=== PATIENT | female | born 1965 | race Caucasian/White ===

== ENCOUNTER 2023-10-10 11:23 | Inpatient (IN) | payer SELFPAY ==
[~2023-10-10] VITALS: Ht 170.2 cm; Wt 68.1 kg
[2023-10-10] MEDS ORDERED: SODIUM CHLORIDE 0.9% 1,000 ML IV ONE ×2 (11:45→14:00)
[2023-10-10] MEDS ORDERED: methylPREDNISolone SOD SUCC 125 MG/2 ML VL IV ONE (12:45)
[2023-10-10 12:47] LABS: Alanine Aminotransferase 160 U/L (7-40); Albumin 3.3 g/dL (3.2-4.8); Alkaline Phosphatase 168 U/L (46-116); Anion Gap 13 (5-15); Aspartate Aminotransferase 589 U/L (13-40); BUN/Creatinine Ratio 21.2 (10.0-20.0); Bilirubin, Total 0.7 mg/dL (0.2-1.0); Blood Urea Nitrogen 32 mg/dL (9-23); Calcium 7.4 mg/dL (8.5-10.1); Carbon Dioxide 19 mmol/L (20-30); Chloride 94 mmol/L (98-107); Glucose 201 mg/dL (74-106); Potassium 4.8 mmol/L (3.5-5.1); Sodium 126 mmol/L (136-145)
[2023-10-10 12:54] LABS: Lactic Acid w/Reflex 3.4 mmol/L (0.4-2.0)
[2023-10-10] MEDS ORDERED: SODIUM CHLORIDE 0.9% 2,050 ML IV ONE (13:15)
[2023-10-10] MEDS ORDERED: AZITHROMYCIN 500MG/ 250ML 250 ML IV ONE (13:15)
[2023-10-10] MEDS ORDERED: VANCOMYCIN 1GM/200ML 200 ML IV ONE ×3 (13:15→15:00)
[2023-10-10 13:31] LABS: COVID19 ANTIGEN SOFIA FIA NEGATIVE (NEGATIVE); Rapid Influenza A Negative (Negative); Rapid Influenza B Negative (Negative)
[2023-10-10] MEDS ORDERED: ACETAMINOPHEN 325 MG TAB PO PRN (14:00)
[2023-10-10] MEDS ORDERED: VANCOMYCIN PER PHARMACY 0 MG IV SCH (14:00)
[2023-10-10] MEDS ORDERED: MORPHINE SULFATE INJ 2 MG/ml SYRG IV PRN (14:00)
[2023-10-10] MEDS ORDERED: CEFEPIME 1GM/ 50ML 50 ML IV ONE (14:00)
[2023-10-10] MEDS ORDERED: NITROGLYCERIN 0.4 MG SL TAB SL PRN (14:00)
[2023-10-10] MEDS ORDERED: ONDANSETRON HCL 4 MG/2 ML VIAL IV PRN (14:00)
[2023-10-10] MEDS ORDERED: PANTOPRAZOLE 40 MG/10 ML VIAL INJ IV ONE (14:00)
[2023-10-10] MEDS ORDERED: SODIUM CHLORIDE 0.9% 1,000 ML IV SCH (14:00)
[2023-10-10 14:17] LABS: Mean Corpuscular Hemoglobin 28.7 pg (28.0-32.0)
[2023-10-10 14:20] LABS: Hematocrit 21.9 % (36.0-46.0); Mean Corpuscular Hgb Conc. 31.3 g/dL (32.0-36.0); Mean Corpuscular Volume 91.5 fL (80.0-100.0); Red Blood Cells 2.39 10^6/uL (4.0-5.20); Red Cell Distribution Width 18.9 % (11.8-14.3)
[2023-10-10] MEDS ORDERED: ALBUTEROL SULF 2.5 MG/0.5ML(0.5%) NEB SOLN NEB PRN (14:45)
[2023-10-10 14:47] LABS: Hemoglobin 6.8 g/dL (12.2-16.2); White Blood Cell 459.3 10^3/uL (4.4-10.8)
[2023-10-10 14:53] LABS: Basophils % (manual) 0 (0.0-2.0); Promyelocytes % 0; Reactive Lymphocytes 0
[2023-10-10 15:00] LABS: INR 1.59 (0.9-1.15); Prothrombin Time 16.2 sec (9.3-11.8)
[2023-10-10 16:23] VITALS: PULSE 95; RESP 20; O2SAT 96
[2023-10-10 17:10] LABS: Band Neutrophils % (manual) 9; Blast Cells 10; Eosinophils % (manual) 1 (0-7); Lymphocytes % (manual) 12 (10.0-50.0); Metamyelocytes % 21; Monocytes % (manual) 4 (0-12); Myelocytes % 29
[2023-10-10 17:13] LABS: Platelet Estimate Decreased
[2023-10-10] MEDS ORDERED: IPRATROPIUM BROM 0.5 MG/2.5ML INH SOL NEB SCH (18:00)
[2023-10-10] MEDS ORDERED: ALBUTEROL SULF 2.5 MG/0.5ML(0.5%) NEB SOLN NEB SCH (18:00)
[2023-10-10 18:26] VITALS: BP 91/49; PULSE 91; RESP 22; TEMP 97.8; O2SAT 94
[2023-10-10] MEDS ORDERED: CEFEPIME 1GM/ 50ML 50 ML IV SCH (22:00)
[2023-10-11] MEDS ORDERED: VANCOMYCIN 1GM/200ML 200 ML IV SCH (09:00)
[2023-10-11] MEDS ORDERED: PANTOPRAZOLE 40 MG/10 ML VIAL INJ IV SCH (10:00)
[2023-10-13 10:31] LABS: Hepatitis B Surface Antigen Negative (Negative)
[2023-10-13 10:51] LABS: Hepatitis A Ab IgM Negative
[2023-10-13 10:52] LABS: Hepatitis B Core IgM Negative
[2023-10-13 10:53] LABS: Hepatitis C Antibody Negative (Negative)
== END 2023-10-10 18:40 | disposition short-term general hospital (02) | DRG 871 ==
LOC: ER 11:23 → TELE 14:05
PROVIDERS: ADMIT Nurse Practitioner Family; ATTEND Nurse Practitioner Family
DX: A41.9 Sepsis, unspecified organism (principal); J15.69 Pneumonia due to other Gram-negative bacteria; J96.00 Acute respiratory failure, unspecified whether with hypoxia or hypercapnia; N17.0 Acute kidney failure with tubular necrosis; E87.1 Hypo-osmolality and hyponatremia; K92.2 Gastrointestinal hemorrhage, unspecified; D64.9 Anemia, unspecified; F17.210 Nicotine dependence, cigarettes, uncomplicated; R73.9 Hyperglycemia, unspecified; R74.01 Elevation of levels of liver transaminase levels; R74.8 Abnormal levels of other serum enzymes; Z20.822 Contact with and (suspected) exposure to COVID-19; Z90.710 Acquired absence of both cervix and uterus
CPT/HCPCS: 36415; 70450; 71045; 80053; 80074; 82550; 83036; 83605; 83880; 83930; 85007; 85027; 85610; 86850; 86900; 86901; 87040; 87426; 87804; 93005; 96361; 96365; 96375; 99291; C9113; G0378; J2405